=== PATIENT | female | born 1980 | race Caucasian/White ===

== ENCOUNTER 2019-09-21 17:12 | Emergency (ER) | payer OTHER ==
[~2019-09-21] VITALS: Ht 157.5 cm; Wt 60.0 kg
[2019-09-21 17:17] VITALS: BP 135/88
[2019-09-21] MEDS ORDERED: AZITHROMYCIN 500 MG TABLET PO ONE (18:30)
[2019-09-21] MEDS ORDERED: AZITHROMYCIN 500 MG TABLET ONE (18:36)
== END 2019-09-21 19:41 | disposition home or self-care (01) ==
LOC: ED 17:19
DX: J06.9 Acute upper respiratory infection, unspecified (principal); R09.89 Other specified symptoms and signs involving the circulatory and respiratory systems; Z20.89 Contact with and (suspected) exposure to other communicable diseases
CPT/HCPCS: 87265; 99283